=== PATIENT | female | born 1970 | race Caucasian/White ===

== ENCOUNTER → 2023-10-01 09:17 | Outpatient (CLI) | payer OTHER, SELFPAY ==
--- NOTE | 2023-10-01 09:21 | DI.US.S_ITS ---
LIMITED ULTRASOUND OF RIGHT BREAST AND AXILLA: 10/01/2023 CLINICAL: Patient returns today to evaluate a focal asymmetry in the right breast. Comparison is made to exams dated: 10/01/2023 mammogram - [facility], 09/03/2023 mammogram, 08/21/2022 mammogram, 04/25/2021 mammogram, 03/29/2020 mammogram, and 03/29/2020 ultrasound - outside location. Color flow and real-time ultrasound of the right breast 8 o'clock, and axilla regions were performed. Woo scale images of the real-time examination were reviewed. There is a 6 mm oval cyst in the right breast at 8 o'clock middle depth. This oval cyst is anechoic with an abrupt boundary and posterior acoustic enhancement. This correlates with mammography findings. Color flow imaging demonstrates that there is no vascularity present. IMPRESSION: BENIGN There is no sonographic evidence of malignancy. The 6 mm oval cyst in the right breast corresponds to the mammogram finding, is consistent with a simple cyst and is benign. Return to annual mammogram screening schedule is recommended. Findings and recommendations were conveyed to the patient at time of exam. This exam was interpreted at Station ID: [id number]. Electronically Signed By: Aliza cristobal/:10/01/2023 12:13:05 letter sent: Normal Exam Ultrasound BI-RADS: 2 Benign
--- NOTE | 2023-10-01 09:21 | DI.MG.S_ITS ---
UNILATERAL RIGHT DIGITAL DIAGNOSTIC MAMMOGRAM 3D/2D WITH ADDITIONAL VIEWS: 10/01/2023 CLINICAL: Additional evaluation requested from prior study. Comparison is made to exams dated: 09/03/2023 mammogram, 08/21/2022 mammogram, 04/25/2021 mammogram, and 03/29/2020 mammogram - outside location. There are scattered areas of fibroglandular density in the right breast (category b / 25%-50% glandular tissue). There is a possible 6 mm irregular high density focal asymmetry with a microlobulated margin in the right breast at 8 o'clock middle depth. This is seen in additional views. No other significant masses or calcifications are seen in the breast. With focal spot compression, and additional views, the abnormality seen on screening mammography in the anterior lateral right breast resolves. IMPRESSION: INCOMPLETE: NEEDS ADDITIONAL IMAGING EVALUATION The possible 6 mm irregular high density focal asymmetry in the right breast most likely is clustered cysts but remains indeterminate. An ultrasound is recommended. This was performed immediately following this exam. Resolution of the right breast anterior lateral screening mammography abnormality with additional views. This is most consistent with normal fibroglandular tissue. Based on the Tyrer Cuzick model (a risk assessment model) the patient's lifetime risk is 8.5% and her 10 year risk is 2.3%. According to the ACR, ACS, and NCCN guidelines, an annual breast MRI exam along with mammogram is recommended if the patient's lifetime risk is 20% or greater. This exam was interpreted at Station ID: [id number]. NOTE: For mammograms, a report in lay terms will be sent to the patient. Approximately 15% of breast malignancies will not be visualized mammographically. In the management of a palpable breast mass, a negative mammogram must not discourage biopsy of a clinically suspicious lesion. Electronically Signed By: Aliza cristobal/:10/01/2023 10:04:36 ACR BI-RADS Category 0: Incomplete [id number]
== END ==
PROVIDERS: PCP Registered Nurse; Referring Provider Obstetrics & Gynecology; Visit Provider Obstetrics & Gynecology
DX: R92.8 Other abnormal and inconclusive findings on diagnostic imaging of breast (principal); N60.01 Solitary cyst of right breast; R92.321 Mammographic fibroglandular density, right breast
CPT/HCPCS: 76642; 77065; G0279

== ENCOUNTER → 2024-10-15 13:40 | Outpatient (CLI) | payer OTHER, SELFPAY ==
--- NOTE | 2024-10-15 13:42 | DI.MG.S_ITS ---
MM screening mammo implant BI: 10/15/2024. BI-RADS: 2 CLINICAL: 54-year old female for bilateral screening mammogram. Tyrer-Cuzick lifetime risk of 7.2%. No personal or first-degree family history of breast cancer. The patient has bilateral implants. PRIOR EXAMS 03/05/2024, 10/01/2023, 08/21/2022, 02/24/2020. MAMMOGRAPHY TECHNIQUE: 2D and 3D (tomosynthesis) digital mammographic views obtained, with additional images as needed for full coverage. Current study was also evaluated with a Computer Aided Detection (CAD) system. DENSITY C. The breasts are heterogeneously dense, which may obscure small masses. IMPLANTS Breast implants present. MAMMOGRAPHY FINDINGS Bilateral: There are no suspicious masses, calcifications, or other findings in the breast. IMPRESSION: * No evidence of malignancy with benign findings. RECOMMENDATIONS Bilateral * Annual screening mammography. OVERALL ASSESSMENT CATEGORY BI-RADS-2: Benign. The [employer] recommends annual screening mammography beginning at age 40 for women with average risk of breast cancer. ELECTRONICALLY SIGNED: Elizabeth Dillon M.D. on 10/15/2024 at 09:25:38 PM PT Interpreting Station ID: [id number]
== END ==
PROVIDERS: PCP Registered Nurse; Referring Provider Registered Nurse; Visit Provider Registered Nurse
DX: Z12.31 Encounter for screening mammogram for malignant neoplasm of breast (principal); Z98.82 Breast implant status; R92.333 Mammographic heterogeneous density, bilateral breasts
CPT/HCPCS: 77063; 77067